=== PATIENT | female | born 1955 | race Caucasian/White ===

== ENCOUNTER → 2016-12-28 | Outpatient (REF) | payer OTHER ==
[2016-12-28 13:32] LABS: LUTEINIZING HORMONE 24.6 mIU/mL
[2016-12-28 13:33] LABS: ESTRADIOL < 19.0 PG/ML; FOLLICLE STIMULATING HORMONE 35.4 mIU/mL
== END ==
LOC: M LAB REF 12:37
PROVIDERS: ATTEND Internal Medicine Medical Oncology
DX: C50.119 Malignant neoplasm of central portion of unspecified female breast (principal)

== ENCOUNTER → 2017-01-18 | Outpatient (REF) | payer OTHER ==
[2017-01-18 14:01] LABS: FREE T4 1.34 NG/DL (0.76-1.46)
== END ==
LOC: M LAB REF 13:22
PROVIDERS: ATTEND Internal Medicine Medical Oncology
DX: C50.019 Malignant neoplasm of nipple and areola, unspecified female breast (principal)

== ENCOUNTER → 2017-03-22 | Outpatient (REF) | payer OTHER | LOC: M LAB REF 12:42 | PROVIDERS: ATTEND Internal Medicine Medical Oncology | DX: C50.911 Malignant neoplasm of unspecified site of right female breast (principal) ==